=== PATIENT | male | born 1955 | race Caucasian/White ===

== ENCOUNTER → 2019-07-01 | Day surgery (SDC) | payer BC ==
[2019-07-01] MEDS: Lactated Ringers 1,000 ML IV SCH (11:52)
[2019-07-01] MEDS: Midazolam 1 MG/ML 2 ML SDV IV ONE ×2 (12:34→12:36)
[2019-07-01] MEDS: fentaNYL 100 MCG/2 ML SDV IV ONE (12:34)
--- NOTE | 2019-07-12 11:28 | OR ---
DATE OF OPERATION: 07/01/2019 INDICATIONS: This patient referred for rectal bleeding and a mass palpable on digital examination. DESCRIPTION OF PROCEDURE: After adequate preparation, colonoscope was inserted into the rectum. 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 I was unable to pass the scope through a narrow channel of the ostia and I needed to change this to a smaller EGD scope. That scope was able to be passed through the opening and the scope was then advanced all the way to the cecum. No other abnormalities in the colon were noted. This mass extends from about 5 cm to about 8 to 9 cm in length from the anal verge. Biopsies of the mass were taken for permanent section. Air was suctioned from the colon and the scope removed. KRISTY/ABUNDIO /[id number]
== END ==
LOC: CC.SDS 11:23
PROVIDERS: ATTEND Surgery
DX: C20 Malignant neoplasm of rectum (principal); E78.5 Hyperlipidemia, unspecified; I10 Essential (primary) hypertension; Z79.82 Long term (current) use of aspirin; Z79.899 Other long term (current) drug therapy
CPT/HCPCS: 45380; J2250; J3010; J7120